=== PATIENT | male | born 1970 ===

== ENCOUNTER → 2017-12-01 | Outpatient (CLI) | payer OTHER ==
--- NOTE | 2017-12-01 15:59 | XR ---
EXAMINATION TYPE: XR ankle complete LT, XR foot complete LT DATE OF EXAM: 12/01/2017 CLINICAL HISTORY: Fall with subsequent left foot and ankle pain. TECHNIQUE: Frontal, lateral and oblique images of the left ankle and foot are obtained. COMPARISON: None. FINDINGS: There is no acute fracture/dislocation evident in the left ankle. Well-corticated fragment distal to the medial malleolus likely sequela of prior injury. The ankle mortise appears within nor mal limits. The overlying soft tissue appears unremarkable. There is no acute fracture or dislocatio n evident in the left foot. There is a small plantar heel spur. The joint spaces in the left foot are preserved. Overlying soft tissue is unremarkable. IMPRESSION: There is no acute fracture or dislocation in the left ankle or foot.
--- NOTE | 2017-12-01 16:00 | XR ---
AP pelvis HISTORY: Trauma and pain Single frontal view of the pelvis Bone mineralization, joint spaces and alignment are maintained impression: No fracture or dislocation. Follow-up as indicated.
--- NOTE | 2017-12-01 16:00 | XR ---
EXAMINATION TYPE: XR knee complete LT DATE OF EXAM: 12/01/2017 CLINICAL HISTORY: Left knee pain after a fall TECHNIQUE: Three views of the left knee are obtained. COMPARISON: None. FINDINGS: There is no acute fracture/dislocation evident in left knee. The tri-compartment joint sp aces appear within normal limits. The overlying soft tissue appears unremarkable. Fabella is inciden tally noted. IMPRESSION: There is no acute fracture or dislocation in the left knee.
--- NOTE | 2017-12-01 16:00 | XR ---
EXAMINATION TYPE: XR lumbar spine 2 or 3V DATE OF EXAM: 12/01/2017 CLINICAL HISTORY: Low back pain after slip and fall TECHNIQUE: Frontal and lateral images of the lumbar spine are obtained. COMPARISON: 12/22/2013 FINDINGS: There are 5 lumbar type vertebral bodies identified. The lumbar spine shows satisfactory alignment without evidence of acute fracture or dislocation. Vertebral body heights and disk space he ights are within normal limits. Mild degenerative changes are seen as small anterior osteophytes of t he lumbar spine and facet arthropathy at L4-S1. The overlying soft tissue appears unremarkable. IMPRESSION: No acute fracture or malalignment is seen in the lumbar spine.
== END | disposition home or self-care (01) ==
LOC: RADXRMAIN 15:24
PROVIDERS: ATTEND Emergency Medicine
DX: S33.5XXA Sprain of ligaments of lumbar spine, initial encounter (principal); S30.0XXA Contusion of lower back and pelvis, initial encounter; S80.02XA Contusion of left knee, initial encounter; S93.402A Sprain of unspecified ligament of left ankle, initial encounter; S93.602A Unspecified sprain of left foot, initial encounter
CPT/HCPCS: 72100

== ENCOUNTER → 2020-05-14 | Outpatient (CLI) | payer BC | END | disposition home or self-care (01) | LOC: LABWHC1 16:32 | PROVIDERS: ATTEND Emergency Medicine | DX: Z20.822 Contact with and (suspected) exposure to COVID-19 (principal) | CPT/HCPCS: U0003; C9803; U0005 ==

== ENCOUNTER → 2020-06-13 | Outpatient (CLI) | payer BC | END | disposition home or self-care (01) | LOC: LABWHC1 16:05 | PROVIDERS: ATTEND Emergency Medicine | DX: Z20.822 Contact with and (suspected) exposure to COVID-19 (principal) | CPT/HCPCS: U0003; C9803 ==

== ENCOUNTER → 2024-07-12 | Outpatient (CLI) | payer BC ==
--- NOTE | 2024-07-12 12:16 | XR ---
EXAMINATION TYPE: XR foot complete RT DATE OF EXAM: 07/12/2024 CLINICAL INDICATION: Male, 54 years old with history of M79.671 RIGHT HEEL PAIN, pain TECHNIQUE: Frontal, lateral, and oblique images of the right foot are obtained. COMPARISON: None FINDINGS: There is no acute fracture/dislocation evident in the right foot. Small sized inferior ca lcaneal spur. Some flexion of the toes is seen. The joint spaces in the right foot appear within norm al limits. The overlying soft tissue appears unremarkable. IMPRESSION: As above. [facility], , 07/12/2024 12:13 PM
== END | disposition home or self-care (01) ==
LOC: RADXRMAIN 11:17
PROVIDERS: ATTEND Podiatrist Primary Podiatric Medicine
DX: M72.2 Plantar fascial fibromatosis (principal); M77.31 Calcaneal spur, right foot